=== PATIENT | male | born 1965 | race African-American/Black ===

== ENCOUNTER 2017-02-20 22:40 | Emergency (ER) | payer OTHER ==
[~2017-02-20] VITALS: Ht 190.5 cm; Wt 122.5 kg
[2017-02-20 22:43] VITALS: BP 130/76
--- NOTE | 2017-02-20 22:55 | ED EAR COMPLAINT ---
History of Present Illness General Chief Complaint: Ear Complaints Stated Complaint: FEELS BOTH EARS CLOGGED Source: patient, old records Exam Limitations: no limitations Vital Signs & Intake/Output Vital Signs & Intake/Output Vital Signs Date Time Temp Pulse Resp B/P B/P Pulse O2 O2 Flow FiO2 Mean Ox Delivery Rate 02/20 2243 97.5 72 18 130/76 95 Room Air ED Intake and Output 02/21 0000 02/20 1200 Intake Total Output Total Balance Patient 270 lb Weight Weight Reported by Patient Measurement Method Allergies Coded Allergies: NO KNOWN ALLERGIES (12/12/12) Triage Note: PT TO TRIAGE WITH C/O BILAT EAR CLOGGED, ?EAR WAX. NO OTHER COMPLAINTS. VSS. Triage Nurses Notes Reviewed? yes Onset: Gradual Duration: week(s): (1), constant Timing: recent history Injury Environment: home Severity: mild Severity Numbers: 5 No Modifying Factors: none Associated Symptoms: DENIES HPI: 51-year-old male with no History presents to ER for evaluation complaining of bilateral clogged ears for the past 1 week. He reports he decreased hearing out of both ears he reports history of similar symptoms in the past for which she's had a have his ears flushed. No recent trauma no fever no chills no congestion sore throat. He denies any discharge or bleeding from his ears no modifying factors or associated symptoms. (SARAH LINCOLN) Past History Travel History Traveled to [place] past 21 day No Medical History Any Pertinent Medical History? see below for history Endocrine: diabetes Surgical History Surgical History: none Psychosocial History What is your primary language Romansh Tobacco Use: Never used Family History Hx Contributory? No (SARAH LINCOLN) Review of Systems Review of Systems Constitutional: Reports: see HPI. All Other Systems: Reviewed and Negative Comments Review of systems: See HPI, All other systems negative. Constitutional, no chills no fever, no malaise HEENT: No visual changes no sore throat no congestion, Cardiovascular: No chest pain , no palpitation Skin: no rashes, no change in skin Respiratory: No dyspnea no cough no sputum GI: No nausea no vomiting, no diarrhea, : No dysuria Muscle skeletal: No joint pain, no back pain, no neck pain, Neurologic: no headache Psych: No stress Heme/endocrine: No bruising Immunology: No lymphadenopathy (SARAH LINCOLN) Physical Exam Physical Exam General Appearance: well developed/nourished, alert, awake Ears: Bilateral: other (CERUMEN). Comments: Well-developed well-nourished patient in no apparent distress. Head/Face: Atraumatic, no maxillary/frontal sinus tenderness Eyes: PERRL, EOMI, no conjunctival injection Ear: Bilateral cerumen impaction External auditory canal and Tympanic membranes clear, no erythema, no FB. Nose: atraumatic.Normal inspection: No bleeding Throat: Moist mucous membranes.Pharynx normal. No stridor/drooling or assymetry. No swelling or edema. Neck: Supple, no lymphadenopathy, FROM Back: FROM Cardiovascular: Regular rate and rhythms no murmurs Respiratory: No respiratory distress. Patient speaking in full complete sentences. Breath sounds clear to auscultation bilaterally: NO W/R/R Extremities: full range of motion Neuro: awake, alert, and oriented to person, place and time. There were no obvious focal neurologic abnormalities. Skin: Warm & dry;No appreciable rash on exposed skin Psych: Mood affect normal, normal memory normal judgment. (SARAH LINCOLN) Progress Differential Diagnoses I considered the following diagnoses in my evaluation of the patient: Cerumen impaction otitis media or otitis externa TM perforation mastoiditis Plan of Care: Both ears were irrigated with hydrogen peroxide however given the anatomy of the left external auditory canal being curved and slanted I discussed the patient that it was difficult to irrigate and he should follow-up with ENT, Debrox drops. Answered all his questions he feels comfortable with this plan and he reports feeling improved in terms of his right ear Initial ED EKG: none (SARAH LINCOLN) Departure Departure Time of Disposition: 2328 Disposition: HOME OR SELF CARE Condition: Stable Clinical Impression Primary Impression: Cerumen impaction Referrals: PATIENT HAS NO PRIMARY CARE DR (PCP/Family) VERÓNICA SALAS MD Additional Instructions: FOLLOW UP WITH EAR NOSE AND THROAT PHYSICIAN DR SALAS. USE OVER THE COUNTER DEBROX DROPS. DO NOT USE Q-TIPS. Departure Forms: Customer Survey General Discharge Information (SARAH LINCOLN) PA/[employer] Co-Sign Statement Statement: ED Attending supervision documentation- I saw and evaluated the patient. I have also reviewed all the pertinent lab results and diagnostic results. I agree with the findings and the plan of care as documented in the PA's/[employer]'s documentation. x I have reviewed the ED Record and agree with the PA's/[employer]'s documentation. [] Additions or exceptions (if any) to the PAs/[employer]'s note and plan are summarized below: [] (MATTHEW HICKS,GILBERTO)
== END 2017-02-20 23:41 ==
LOC: ERH 22:40
DX: H61.23 Impacted cerumen, bilateral (principal)